=== PATIENT | female | born 1985 | race Caucasian/White ===

== ENCOUNTER 2017-11-25 18:43 | Emergency (ER) | payer SELFPAY ==
[2017-11-25 18:44] VITALS: BP 116/76; PULSE 63; RESP 16; TEMP 37.2; O2SAT 98; BMI 21.4
--- NOTE | 2017-11-25 19:19 | ED.VISSUMM ---
- ER Visit Summary Date of Service: 11/25/17 Chief Complaint: Dental pain History of Present Illness: The patient is a 32 F presenting with dental pain for 6 hours. There is a right maxillary second molar. She believes it has a cavity. She denies trouble swallowing. Denies fever or chills. No other complaints. It is worse with chewing. Physical Examination: She has tenderness on percussion and vocal decay noted of the right maxillary second molar. No focal abscess. No trismus. No facial swelling or cellulitis. Test Results: None performed Emergency Department Course and Treatment: Will be treated with clindamycin and dental follow-up Treatment Plan: Follow-up with a dentist Disposition: Home stable condition Impression: Initial encounter dental infection This note was generated with [employer] dictation software. It may contain incorrect words, spelling, and punctuation that were not noted in review of the chart prior to signing ED Disposition - Plan for ED Patient: Chief Complaint: Dental Instructions: ED Tooth Pain Prescriptions: Clindamycin [Cleocin] 300 mg PO 4X/DAY #80 capsule Referrals: Care Physician,No Primary [Primary Care Provider] -
[2017-11-25] MEDS: Clindamycin HCl 150 MG Capsule 300 MG PO (19:26)
[2017-11-25 19:40] VITALS: RESP 18; O2SAT 99
== END 2017-11-25 19:41 | disposition home or self-care (01) ==
PROVIDERS: Emergency Provider Emergency Medicine
DX: K04.7 Periapical abscess without sinus (principal)
CPT/HCPCS: 99283

== ENCOUNTER → 2020-01-26 16:02 | Outpatient (CLI) | payer MEDICAID, SELFPAY ==
[2020-01-26 16:57] LABS: Absolute Lymphocyte Count 3.04 X10^3/uL (0.83-4.51); Absolute Neutrophil Count 3.9 X10^3/uL (2.0-7.7); Basophil# 0.03 X10^3/uL; Basophil% 0.4 % (0-1); Eosinophil# 0.45 X10^3/uL; Eosinophils% 5.7 % (0-5); Hematocrit 33.3 % (37-47); Hemoglobin 11.2 g/dL (12.0-15.0); Lymphocyte # 3.04 X10^3/ul (4.0); Lymphocyte % 38.5 % (19-41); Mean Corp Hgb Conc 33.6 g/dL (32-36); Mean Corpuscular Hgb 31.7 pg (27.0-32.0); Mean Corpuscular Volume 94.3 fL (81-99); Mean Platelet Vol. 10.2 fl (6.2-12.0); Monocyte# 0.49 X10^3/uL; Monocyte% 6.2 % (0-10); NRBC Flagged by Analyzer 0 % (0-5); Neutrophil # 3.87 X10^3/uL (2.7-7.7); Neutrophil % 49.1 % (47-70); Platelet Count 226 K/mm3 (150-450); RBC Distribution Width CV 12.1 % (11.6-14.6); RBC Distribution Width SD 41.9 fl (35.1-43.9); Red Blood Count 3.53 M/mm3 (4.2-5.4); White Blood Count 7.9 K/mm3 (4.4-11.0)
[2020-01-26 18:54] LABS: Anion Gap 6 (5-15); Chloride 106 mmol/L (98-107); Potassium 3.9 mmol/L (3.5-5.1); Sodium Level 137 mmol/L (136-145)
[2020-01-26 19:10] LABS: HIV - WCH Non-Reactive (Nonreactive)
[2020-01-26 19:31] LABS: Internal QC Validated? YES +Cl - CLEAR BKGD; Pregnancy, Serum, hCG Quali. NEGATIVE Negative
[2020-01-28 04:07] LABS: HEPATITIS B SURFACE AG Negative (Negative); Hepatitis A AB, Total Negative (Negative); Hepatitis A IgM Antibody Negative (Negative); Hepatitis B Core AB IgM Negative (Negative); Hepatitis B Core Ab Total Negative (Negative); Hepatitis C Ab <0.1 s/co ratio (0.0-0.9)
[2020-01-28 14:15] LABS: Hep B Surface Antibodies Reactive (.)
[2020-02-02 01:45] LABS: Rapid Plasmin Reagin (RPR) NONREACTIVE (NONREACTIVE)
== END ==
DX: F11.20 Opioid dependence, uncomplicated (principal)
CPT/HCPCS: 36415; 80051; 84703; 85025; 86592; 86703; 86704; 86705; 86706; 86708; 86709; 86803; 87340